=== PATIENT | male | born 1980 | race Caucasian/White ===

== ENCOUNTER 2017-03-15 10:03 | Emergency (ER) | payer MEDICAID ==
[~2017-03-15] VITALS: Ht 180.3 cm; Wt 99.8 kg
[2017-03-15 10:10] VITALS: BP 136/90
== END 2017-03-15 11:23 | disposition home or self-care (01) ==
LOC: ER 10:10
DX: J02.9 Acute pharyngitis, unspecified (principal)
CPT/HCPCS: A4606; Z7610

== ENCOUNTER 2017-04-06 22:19 | Emergency (ER) | payer MEDICAID ==
[~2017-04-06] VITALS: Ht 175.3 cm; Wt 90.7 kg
[2017-04-07 00:10] VITALS: BP 139/96
== END 2017-04-07 00:21 | disposition home or self-care (01) ==
LOC: ER 22:25
DX: H65.91 Unspecified nonsuppurative otitis media, right ear (principal)
CPT/HCPCS: 99283; A4606; Z7610